=== PATIENT | male | born 1960 | race African-American/Black ===

== ENCOUNTER 2022-03-27 16:28 | Emergency (ER) | payer SELFPAY ==
[~2022-03-27] VITALS: Ht 188 cm; Wt 95.0 kg
[2022-03-27 16:33] VITALS: BP 142/76
== END 2022-03-27 17:27 | disposition left against medical advice (07) ==
LOC: ER 16:49
DX: R55 Syncope and collapse (principal); R94.31 Abnormal electrocardiogram [ECG] [EKG]; I10 Essential (primary) hypertension
CPT/HCPCS: 93005; 99283